=== PATIENT | female | born 1975 | race Asian ===

== ENCOUNTER → 2016-06-24 | Outpatient (CLI) | payer OTHER ==
--- NOTE | 2016-06-24 17:08 | MAMMOGRAPHY REPORT ---
BILATERAL DIGITAL SCREENING MAMMOGRAM TOMOSYNTHESIS WITH CAD: 06/24/2016 CLINICAL HISTORY: Routine screening. Patient has no complaints. TECHNIQUE: Breast tomosynthesis in addition to standard 2D mammography was performed. Current study was also evaluated with a Computer Aided Detection (CAD) system. COMPARISON: Comparison is made to exams dated: 06/21/2015 mammogram and 10/27/2013 mammogram - [facility]. BREAST COMPOSITION: The tissue of both breasts is heterogeneously dense, which may obscure small ma sses. FINDINGS: The parenchymal pattern appears similar to prior exams. No new suspicious mass, rfid systems architect ural distortion or cluster of microcalcifications is seen. IMPRESSION: ACR BI-RADS CATEGORY 1: NEGATIVE There is no mammographic evidence of malignancy. A 1 year screening mammogram is recommended. The p atient will receive written notification of the results. Approximately 10% of breast cancers are not detected with mammography. A negative mammographic repor t should not delay biopsy if a clinically suggestive mass is present. Bree Todd M.D. ay/:06/24/2016 16:09:40 Workcell Operator: Socorro SHERMAN(Peace)(Kayce), [facility] letter sent: Normal 1/2 BI-RADS Code: ACR BI-RADS Category 1: Negative
== END | disposition home or self-care (01) ==
LOC: C.MAMM 13:11
PROVIDERS: ATTEND Internal Medicine
DX: Z12.31 Encounter for screening mammogram for malignant neoplasm of breast (principal)

== ENCOUNTER → 2016-06-26 | Outpatient (CLI) | payer OTHER | END | disposition home or self-care (01) | LOC: C.PAPS 13:44 | PROVIDERS: ATTEND Physician Assistant | DX: Z01.419 Encounter for gynecological examination (general) (routine) without abnormal findings (principal) ==

== ENCOUNTER → 2017-06-29 | Outpatient (CLI) | payer OTHER ==
--- NOTE | 2017-06-30 15:22 | MAMMOGRAPHY REPORT ---
BILATERAL DIGITAL SCREENING MAMMOGRAM TOMOSYNTHESIS WITH CAD: 06/29/2017 CLINICAL HISTORY: Routine screening. Patient has no complaints. TECHNIQUE: Breast tomosynthesis in addition to standard 2D mammography was performed. Current study was also evaluated with a Computer Aided Detection (CAD) system. COMPARISON: Comparison is made to exams dated: 06/24/2016 mammogram, 06/21/2015 mammogram, and 10/28/19 14 mammogram - [facility]. BREAST COMPOSITION: The tissue of both breasts is heterogeneously dense, which may obscure small mas ses. FINDINGS: No suspicious masses, calcifications, or areas of architectural distortion are noted in ei ther breast. There has been no significant interval change compared to prior exams. IMPRESSION: ACR BI-RADS CATEGORY 1: NEGATIVE There is no mammographic evidence of malignancy. A 1 year screening mammogram is recommended. The pa tient will receive written notification of the results. Approximately 10% of breast cancers are not detected with mammography. A negative mammographic report should not delay biopsy if a clinically suggestive mass is present. Danya Sanz M.D. ah/:06/29/2017 14:37:24 Vender: Cammy SHERMAN(R)(M), [facility] letter sent: Normal 1/2 BI-RADS Code: ACR BI-RADS Category 1: Negative
== END | disposition home or self-care (01) ==
LOC: C.MAMM 14:15
PROVIDERS: ATTEND Internal Medicine
DX: Z12.31 Encounter for screening mammogram for malignant neoplasm of breast (principal)

== ENCOUNTER → 2017-09-22 | Outpatient (CLI) | payer OTHER ==
[2017-09-22 17:13] LABS: BASO % 1.5 %; BASO ABS # 0.07 K/uL (0-0.2); EOS % 1.1 %; EOS ABS # 0.05 K/uL (0-0.5); HEMATOCRIT 34.2 % (37-47); HEMOGLOBIN 10.4 g/dL (12.0-16.0); IG# 0.01 K/uL (0.00-0.02); LYMPH % 42.5 %; MEAN CELL VOLUME 76.9 fL (80-100); MEAN CORPUSCULAR HEMOGLOBIN 23.4 pg (25-34); MEAN CORPUSCULAR HGB CONC 30.4 g/dl (32-36); MEAN PLATELET VOLUME 9.7 fL (7.4-10.4); MONO % 8.7 %; MONO ABS # 0.41 K/uL (0.11-0.59); NEUT ABS # 2.17 K/uL (1.4-6.5); PLATELET COUNT 357 K/uL (130-400); RED CELL DISTRIBUTION WIDTH CV 19.4 % (11.5-14.5); RED CELL DISTRIBUTION WIDTH SD 54.8 fL (36.4-46.3); WHITE BLOOD COUNT 4.71 K/uL (4.8-10.8)
[2017-09-22 19:24] LABS: ALT/SGPT 19 U/L (12-78); AST/SGOT 11 U/L (15-37); BLOOD UREA NITROGEN 14 mg/dl (7-18); CALCIUM 8.8 mg/dl (8.5-10.1); CARBON DIOXIDE 25 mmol/L (21-32); CREATININE 0.63 mg/dl (0.60-1.20); GLUCOSE 78 mg/dl (70-99); POTASSIUM 4.1 mmol/L (3.5-5.1); SODIUM 137 mmol/L (136-145)
[2017-09-22 19:34] LABS: ALKALINE PHOSPHATASE 21 U/L (45-117); CHOLESTEROL 171 mg/dl (0-200); LDL CHOLESTEROL CALCULATED 103 mg/dl; TOTAL PROTEIN 7.6 gm/dl (6.4-8.2)
== END | disposition home or self-care (01) ==
LOC: C.LABBFT 11:30
PROVIDERS: ATTEND Internal Medicine
DX: Z00.00 Encounter for general adult medical examination without abnormal findings (principal); E07.9 Disorder of thyroid, unspecified; K52.9 Noninfective gastroenteritis and colitis, unspecified

== ENCOUNTER 2021-07-18 10:32 | Observation (INO) ==
--- NOTE | 2021-07-15 11:00 | Anesthesiology Consultation ---
Date of Service July 15, 2021 Assessment & Plan (1) Encounter for pre-operative examination: Chart Review Chart Review: Acceptable Risk for Surgery (pending preop Covid testing and DOS CBC with diff ) and Patient NOT seen in Pre Admission Testing -Due to anemia- will order CBC with diff DOS - Check test AM DOS Per nursing assessment 07/15/2021, no recent travel. Wears mask in public. No known Covid infection in the past 90 days. Patient is fully vaccinated for Covid. No known Covid positive exposures or Covid related symptoms. Preop Covid testing scheduled 07/16/21= will await results History Surgery Operation Date: 07/18/21 12:10 Proposed Procedures p Cystoscopy, Laparoscopic Removal of the Uterus and Both Fallopian Tubes, Possible Removal of One or Both Ovaries - Lawanda Shrestha MD, FACOG Height/Weight Height: 5 ft 3 in Weight: 67.132 kg Allergies Allergy/AdvReac Type Severity Reaction Status Date / Time No Known Allergies Allergy Verified 07/15/21 08:01 Medications Home Medications Medication Instructions Recorded Confirmed Last Taken No Known Home Medications 11/18/19 07/15/21 Unknown Past Medical History Medical History Dyslipidemia GERD without esophagitis Helicobacter pylori (H. pylori) infection Iron deficiency anemia HX Pityriasis rosea Past Family History Family History Mother Anemia Hypertension Dyslipidemia Sister Anemia Daughter Anemia Father Stomach cancer Cancer Denies family history of Ovarian cancer Breast cancer Colorectal cancer Uterine cancer Past Surgical History Surgical History History of colonoscopy History of dilatation and curettage History of esophagogastroduodenoscopy (EGD) History of gynecologic surgery Hysteroscopic tubal occlusion Social History Smoking Status: Never smoker Do You Dip or Chew Tobacco: No Hx Alcohol Use: No Hx Substance Use: No
[~2021-07-18 10:32] MED LIST: LACTATED RINGER'S 1,000 ML IV SCH; LR 15ML/HR IV SCH; ceFAZolin 2000MG 2,000 MG/15 ML SYR IV SCH
[2021-07-18 10:59] LABS: Hematocrit (blood only) 31.2 % (37-47); Hemoglobin 9.4 g/dL (12.0-16.0); Mean Corpuscular Volume 73.1 fL (80-100); Mean Platelet Volume 9.2 fL (7.4-10.4); Platelet Count 402 K/uL (130-400); RDW Coefficient of Variation 17.9 % (11.5-14.5); RDW Standard Deviation 47.9 fL (36.4-46.3); Red Blood Count 4.27 M/uL (4.2-5.4); White Blood Count 5.18 K/uL (4.8-10.8)
[2021-07-18 11:11] LABS: Mean Corpuscular Hgb Conc 30.1 g/dL (32-36)
[2021-07-18 11:17] LABS: ANC (manual) 2.36 K/uL (1.4-6.5); Eosinophils # (manual) 0.05 K/uL (0-0.5); Eosinophils % (manual) 0.9 %; Hypochromasia Present; Large Granular Lymph # (manua 1.06 K/uL; Large Granular Lymph % (manual) 20.5 %; Lymphocytes # (manual) 1.34 K/uL (1.2-3.4); Lymphocytes % (manual) 25.9 %; Microcytosis Present; Monocytes # (manual) 0.37 K/uL (0.11-0.59); Monocytes % (manual) 7.1 %; Neutrophils # (manual) 2.36 K/uL (1.4-6.5); Neutrophils % (manual) 45.6 %
[2021-07-18] MEDS ORDERED: fentaNYL citrate 100 MCG/2 ML VIAL IV PRN (12:43)
[2021-07-18] MEDS ORDERED: ATROPINE SULFATE 0.1 MG/ML 10ML SYR IV PRN (12:43)
[2021-07-18] MEDS ORDERED: ONDANSETRON INJ 2 MG/ML 2 ML VIAL IV PRN ×2 (12:43→16:03)
[2021-07-18] MEDS ORDERED: ePHEDrine sulfate 50 MG/ML AMP IV PRN (12:43)
--- NOTE | 2021-07-18 13:34 | History & Physical Report ---
Date of Service July 18, 2021 Assessment & Plan (1) Enlarged uterus: Plan: Assessment and Plan Assessment and Plan (1) Enlarged uterus: (2) Pain in female pelvis: Plan: Total laparoscopic hysterectomy and possible bilateral salpingo-oophorectomy and cystoscopy. Alternatives discussed including the option of not having surgery medical options discussed alternative surgical options discussed we discussed d ifferent modes of hysterectomy as well we discussed possible conversion of laparoscopic hysterectomy into abdominal hysterectomy Risks were discussed as well these include bleeding infection injury to internal organs such as bowel bladder ureters and vessels deep vein thrombosis pulmonary embolus hernia of the incision and also vaginal cuff dehiscence. The patient verbalized understanding of this discussion and was given ample time to ask questions as well 218 cc uterus essure migrating conserve ovaries 3 prior (2) Pain in female pelvis: History of Present Illness Primary Care Provider: Maddie Monae MD Enlarged uterus patient wishes definitive management Allergies Allergy/AdvReac Type Severity Reaction Status Date / Time No Known Allergies Allergy Verified 07/18/21 11:09 Home Medications Medication Instructions Recorded Confirmed Type No Known Home Medications 11/18/19 07/18/21 History Patient History Medical History GERD without esophagitis Helicobacter pylori (H. pylori) infection Iron deficiency anemia Surgical History History of colonoscopy History of dilatation and curettage History of esophagogastroduodenoscopy (EGD) History of gynecologic surgery Hysteroscopic tubal occlusion Family History (Updated 07/16/21 @ 10:59 by Krystyna Barr) Mother Anemia Hypertension Dyslipidemia Sister Anemia Daughter Anemia Father Stomach cancer Cancer Denies family history of Ovarian cancer Myocardial infarction Breast cancer Colorectal cancer Uterine cancer Social History (Updated 07/16/21 @ 11:00 by Krystyna Barr) Smoking Status: Never smoker Second Hand Exposure: No; Do You Dip or Chew Tobacco: No; Hx Alcohol Use: No Hx Substance Use: No Preferred Language: Bermudian Communication Ability: Effective Bookmobile Driver Required: No Beliefs That Will Affect Care: None marital status: Current Living Situation: Spouse and Family How many Children do You have: 3 Other Information That Helps Us Care for You: No Feels Safe at Home: Yes Safety Concerns: Feels Safe At This Time Childhood Exposure to Second-Hand Smoke: No Diet Comment: reg diet during the past year weight has: remained stable Dental Care, Regularly: No Physical Activity Frequency: Does not Exercise Assistive Devices: None Review of Systems as per Subjective / HPI Physical Exam Constitutional: WD/WN, vitals as above well developed and well nourished Respiratory: normal respiratory effort, lungs clear to auscultation normal respiratory effort Cardiovascular: RRR, no murmur, no edema Gastrointestinal (Abdomen): normal bowel sounds, soft, nontender, no hepatosplenomegaly Genitourinary: normal external appearance Speculum/Bimanual Exam: normal bimanual exam, normal appearance of the vagina and normal appearance of the cervix Results & Data ([facility]) Vital Signs (Past 12 Hours) Vital Signs Temp Pulse Resp BP Pulse Ox 07/18/21 11:11 98.1 F 58 L 18 120/75 98 Coding Level of Care Code None Diagnoses Enlarged uterus N85.2 Pain in female pelvis R10.2
[2021-07-18] MEDS ORDERED: BUPIVACAINE 0.5 % 5 MG/1 ML MPF 30ML VIAL ONE (13:51)
[2021-07-18] MEDS ORDERED: MIDAZOLAM HCL 1 MG/ML 2ML VIAL ONE (14:02)
[2021-07-18] MEDS ORDERED: ROCURONIUM BROMIDE 10 MG/ML 5 ML VIAL IV ONE (14:02)
[2021-07-18] MEDS ORDERED: LIDOCAINE 2% 2 ML VIAL/AMP(20MG/ML) INFIL ONE (14:02)
[2021-07-18] MEDS ORDERED: PROPOFOL IV EMULSION 10 MG/ML 20 ML VIAL IV ONE (14:02)
[2021-07-18] MEDS ORDERED: fentaNYL citrate 100 MCG/2 ML VIAL ONE (14:03)
[2021-07-18] MEDS ORDERED: TISSEEL FIBRIN SEALANT 4ML TOP ONE (15:19)
[2021-07-18] MEDS ORDERED: ePHEDrine sulfate 50 MG/ML AMP ONE (15:24)
[2021-07-18] MEDS ORDERED: METHYLENE BLUE 0.5% 10 ML VIAL ONE (15:24)
[2021-07-18] MEDS ORDERED: ACETAMINOPHEN 1000 MG/100 ML IV IV ONE (15:31)
[2021-07-18] MEDS ORDERED: KETOROLAC 30 MG/ML VIAL ONE (15:34)
[2021-07-18] MEDS ORDERED: NEOSTIGMINE METHYLSULFATE 1 MG/ML 10ML VIAL ONE (15:34)
[2021-07-18] MEDS ORDERED: ONDANSETRON INJ 2 MG/ML 2 ML VIAL ONE (15:34)
[2021-07-18] MEDS ORDERED: DEXAMETHASONE SOD INJ 4 MG/ML VIAL ONE (15:34)
[2021-07-18] MEDS ORDERED: GLYCOPYRROLATE 0.2 MG/ML VIAL ONE (15:35)
[2021-07-18] MEDS ORDERED: ACETAMINOPHEN 325 MG TAB PO PRN (16:03)
[2021-07-18] MEDS ORDERED: oxyCODONE/ACETAMINOPHEN 5mg/325mg TAB PO PRN (16:03)
--- NOTE | 2021-07-18 16:06 | Operative Report ---
PG Post Operative Report Pre & Post Diagnosis Operation Date: 07/18/21 12:10 Pre-Op Diagnosis: Uterine Enlargement, Essure Removal Post-Op Diagnosis: Uterine Enlargement, Essure Removal I identified the patient and participated in the time-out.: Yes Procedure Operation Date: 07/18/21 12:10 Actual Procedures p Robotic assisted total laparoscopic hysterectomy with bilateral salpingectomy and cystoscopy(Not Applicable) - Lawanda Shrestha MD, FACOG Surgeon Lawanda Shrestha MD, FACOG Ship Construction Teacher . Estimated Blood Loss 10 Findings Consistent with Post-Op Diagnosis Specimens Uterus cervix fallopian tubes Description of Procedure Patient was given a general anesthetic, prepped and draped in dorsal lithotomy position in yellow fin katlyn stirrups. Care was taken to position the legs and arms properly with no excess pressure on any area. Pre-operative antibiotics were given and SCDs applied earlier. Maldonado catheter was inserted into her bladder, V-Care manipluator was placed in the uterus. Gloves were changed and then a supra-umbilical incision was made with scalpel, using Donny technique, we dissected through the subcutaneous fat, fascia, split the rectus muscles and then entered the peritoneal cavity. Blunt tip Donny Trochar then inserted and balloon inflated to stabilize the port. CO2 gas was then used to insufflate the peritoneal cavity. Findings. Enlarged uterus but appears benign adnexa within normal limits no significant adhesions Deep tendelenberg position was obtained. 2 robotic ports were then placed, one on the left, one on the right side under direct visualization. 11mm bladeless accessory port placed in left upper quadrant under direct visualization. Robot docked. Arm #1 Bipolar [place] grasper, arm #3 Monopolar Emmanuel. Fallopian tubes were identified and removed using the monoplar emmanuel to dissect them away from their attachments and removed thru the accessory port. Ureter was identified on each side and followed a normal course. Distal to the left ovary, the blood supply was coagulated with the bipolar [place] and then cut with Emmanuel. We were well away from the ureter. Round ligament was coagulated and then cut. Uterine vessels were then skeletonized, bladder flap was sharply dissected away with emmanuel. Uterine vessels were then coagulated close to the cervix staying away from the left ureter. Vessels then cut. Exact same process was repeated on the right side taking note of the location of the right ureter. Colpotomy was then performed with the monopolar emmanuel using judicious energy, once completed, the specimen was removed through the vagina. A sponge in a glove was then placed in the vagina to maintain pneumoperitoneum. Instrument exchange then occurred. Arm #1Cobra Grasper, Arm # 2 became the RAGHU needle local truck driver. 12 inch 2-0 V-Lock 90 day suture was placed through the accessory port. Cuff was closed from left to right, then back taking at least 1cm full thickness bites of vaginal mucosa. Suture was cut so there was no tail, needle removed through the accessory port. Sponge removed from the vagina and seal air tight. Generous irrigation and suction, hemostasis excellent, Tisseal applied to pedicles. Cystoscopy performed and no injury to the bladder, no sutures noted, good strong jets were noted from both right and left ureter openings. Cystoscope removed, bladder drained. Note methylene blue was used Robot undocked, instruments, ports removed. gas allowed to escape. Incisions injected with Marcaine, fascia closed in the umbilica incision carefully with 0- vicryl and a deep stitch into the accessory port with 0-Vicryl. 4-0 subcuticular skin closures on all incisions, dermabond apllied. Sponge and instrument counts correct. I attest to the content of the Intraoperative Record and any orders documented therein. Any exceptions are noted below. CARE DIRECTOR RN Major Procedure Codes Hysterectomy [id number] TLH <250g +S/O
[2021-07-18] MEDS ORDERED: HYDROmorphone INJ 2 MG/ML SYR/VIAL ONE (16:13)
[2021-07-18] MEDS ORDERED: LACTATED RINGER'S 1,000 ML IV SCH (16:15)
[2021-07-18] MEDS ORDERED: DROPERIDOL 5 MG/2 ML VIAL IV STA (17:08)
--- NOTE | 2021-07-18 17:46 | Anesthesiology Progress Note ---
Date of Service July 18, 2021 Anesthesia Post Procedure Vital Signs Vital Signs: Temp Pulse Pulse Resp BP BP Pulse Ox 07/18/21 17:25 36.4 C L 54 L 16 99/61 L 98 07/18/21 17:15 57 L 16 101/63 95 07/18/21 17:05 55 L 14 119/70 96 07/18/21 16:55 56 L 16 111/67 95 07/18/21 16:45 52 L 12 115/68 100 07/18/21 16:35 61 15 116/60 100 07/18/21 16:25 57 L 16 114/63 100 07/18/21 16:17 36.2 C L 63 10 L 115/63 92 07/18/21 11:11 36.7 C 58 L 18 120/75 98 Pain Intensity Abdomen: Pain Intensity: 2 Transfer of Care Handoff Completed per policy Notes Mental Status: alert / awake / arousable Patient Amnestic to Procedure: Yes Nausea / Vomiting: adequately controlled Pain: adequately controlled Airway Patency, RR, SpO2: stable & adequate BP & HR: stable & adequate Hydration State: stable & adequate Anesthetic Complications: no major complications apparent and Pt Satisfied with anesthetic care
[2021-07-19] MEDS: IBUPROFEN 600 MG TAB PO PRN ×2 (01:32→08:53)
[2021-07-19] MEDS: oxyCODONE/ACETAMINOPHEN 5mg/325mg TAB PO PRN ×2 (04:43→08:53)
--- NOTE | 2021-07-19 08:07 | Gynecologic Progress Note ---
Date of Service July 19, 2021 Assessment & Plan (1) Post-operative state: Plan: Postoperative day #1 from uncomplicated TLH the patient had significant nausea last night and required observation overnight at this stage she is doing well tolerating an oral diet her nausea is gone her pain is well controlled she is ambulating. Plan on discharge this morning Admission and Anticipated Discharge Date Admission Date: July 18, 2021 Results & Data ([facility]) Vital Signs (Past 12 Hours) Vital Signs Temp Pulse Resp BP Pulse Ox 07/19/21 03:47 98.8 F 70 16 102/62 96 07/18/21 23:24 97.7 F 61 14 106/71 94 07/18/21 22:00 97.5 F L 60 16 107/72 95 07/18/21 21:00 97.7 F 57 L 16 109/72 95 07/18/21 20:32 58 L 14 108/71 94 PG Care Time/CCT Total # of Minutes Spent Total Time Spent with Patient: Total time spent is greater than 50% in coordination of care (as documented) at patient's floor/unit and/or counseling patient: Coding Level of Care Code None Diagnoses Post-operative state Z98.890
--- NOTE | 2021-07-24 08:01 | Discharge Summary ---
Date of Service July 24, 2021 Admission HPI Per Admitting Provider Enlarged uterus patient wishes definitive management Admission Exam (Per Admitting) Constitutional WD/WN, vitals as above well developed and well nourished Respiratory normal respiratory effort, lungs clear to auscultation normal respiratory effort Cardiovascular RRR, no murmur, no edema Gastrointestinal (Abdomen) normal bowel sounds, soft, nontender, no hepatosplenomegaly Genitourinary normal external appearance Speculum/Bimanual Exam: normal bimanual exam, normal appearance of the vagina and normal appearance of the cervix Discharge Data Procedures Performed Operation Date: 07/18/21 12:10 Actual Procedures p Robotic assisted total laparoscopic hysterectomy with bilateral salpingectomy and(Not Applicable) - Lawanda Shrestha MD, FACOG s Cystoscopy(Not Applicable) - Lawanda Shrestha MD, FACOG Hospital Course (1) Post-operative state: Postoperative day #1 from uncomplicated TLH the patient had significant nausea last night and required observation overnight at this stage she is doing well tolerating an oral diet her nausea is gone her pain is well controlled she is ambulating. Plan on discharge this morning Coding Level of Care Code None Diagnoses Post-operative state Z98.890
== END 2021-07-19 09:56 | disposition home or self-care (01) ==
LOC: ASU 10:32 → 4S2 10:32